=== PATIENT | female | born 1990 | race Caucasian/White ===

== ENCOUNTER 2024-05-26 15:01 | Inpatient (IN) | payer MEDICAID ==
[~2024-05-26] VITALS: Ht 165.1 cm; Wt 65.0 kg
[2024-05-26] MEDS ORDERED: DiphenhydrAMINE HCL 50 MG/ML VIAL ONE (15:25)
[2024-05-26] MEDS ORDERED: HALOPERIDOL LACTATE 5 MG/ML VIAL ONE ×2 (15:25→15:27)
[2024-05-26] MEDS ORDERED: LORazepam 2 MG/ML VIAL ONE (15:25)
[2024-05-26] MEDS: DiphenhydrAMINE HCL 50 MG/ML VIAL IM ONE (15:52)
[2024-05-26] MEDS: HALOPERIDOL LACTATE 5 MG/ML VIAL IM ONE (15:52)
[2024-05-26] MEDS: LORazepam 2 MG/ML VIAL IM ONE (15:53)
[2024-05-26] MEDS: BACITRACIN 0.9 GM PACKET OINTMENT TP ONE (16:32)
[2024-05-26] MEDS: PERTUSS(ACELL),DIPH,TET/PF 0.5 ML SYRINGE [ADULT] IM. ONE (16:34)
[2024-05-26 17:05] LABS: BASOPHILS % (AUTO) 0.4 % (0.0-2.0); EOSINOPHILS % (AUTO) 4.3 % (1.0-6.0); HEMATOCRIT 40.5 % (36-46); HEMOGLOBIN 13.2 g/dL (12.0-16.0); LYMPHOCYTES # (AUTO) 2.2 K/uL (1.0-4.8); LYMPHOCYTES % (AUTO) 34.7 % (22.0-44.0); MEAN CORPUSCULAR HEMOGLOBIN 28.4 pg (26.0-34.0); MEAN CORPUSCULAR HGB CONC 32.4 G/dL (31.0-37.0); MEAN CORPUSCULAR VOLUME 88 fL (80-100); MONOCYTES # (AUTO) 0.4 K/uL (0.1-1.0); MONOCYTES % (AUTO) 5.7 % (2.0-9.0); NEUTROPHILS # (AUTO) 3.4 K/uL (1.8-7.7); NEUTROPHILS % (AUTO) 54.9 % (40.0-70.0); PLATELET COUNT (AUTO) 124 K/uL (150-450); RED BLOOD CELL COUNT(AUTO) 4.64 MIL/uL (4.00-5.20); RED CELL DISTRIBUTION WIDTH 14.3 % (11.5-14.5); WHITE BLOOD COUNT (AUTO) 6.2 K/uL (4.5-11.0)
[2024-05-26 17:12] LABS: ANION GAP 11 mmol/L (8-16); CARBON DIOXIDE 25 mmol/L (22-29); CHLORIDE 108 mmol/L (98-107); CREATININE 0.68 mg/dL (0.60-1.30); GLOMERULAR FILTR. RATE CALC > 60 mL/min (>60); GLUCOSE,RANDOM 73 mg/dL (70-110); POTASSIUM 3.8 mmol/L (3.5-5.1); SODIUM SERUM 144 mmol/L (136-145); UREA NITROGEN, BLOOD 9 mg/dL (7-18)
[2024-05-26 17:14] LABS: ALCOHOL, BLOOD (SERUM) 151 mg/dL (0-10)
[2024-05-26 19:18] LABS: COVID AG,FIA SOURCE NASAL SWAB
[2024-05-26 19:43] LABS: SARS-COV2 (COVID) ANTIGEN,FIA Negative (Negative)
[2024-05-26] MEDS: LIDOCAINE 1% 10 ML VIAL ID ONE (19:59)
[2024-05-26] MEDS ORDERED: HALOPERIDOL 5 MG TABLET PO PRN (22:00)
[2024-05-26] MEDS ORDERED: LORazepam 2 MG TABLET PO PRN (22:00)
[2024-05-26 22:03] LABS: ALCOHOL, URINE DRUG SCREEN POSITIVE (NEGATIVE); AMPHET/METH SCREEN,URINE NEGATIVE (NEGATIVE); BARBITURATE SCREEN, URINE NEGATIVE (NEGATIVE); BENZODIAZEPINES SCREEN,URINE NEGATIVE (NEGATIVE); CANNABINOID SCREEN,URINE POSITIVE (NEGATIVE); COCAINE SCREEN,URINE NEGATIVE (NEGATIVE); METHADONE SCREEN, URINE NEGATIVE (NEGATIVE); OPIATE SCREEN,URINE NEGATIVE (NEGATIVE); PHENCYCLIDINE SCREEN,URINE NEGATIVE (NEGATIVE)
[2024-05-27 22:25] VITALS: BP 115/80; PULSE 79; RESP 15; TEMP 97.7; O2SAT 98
[2024-05-28 08:31] VITALS: BP 109/61; PULSE 94; RESP 17; TEMP 97.8; O2SAT 99
[2024-05-28] MEDS ORDERED: CloNIDine HCL 0.1 MG TABLET PO PRN (12:00)
[2024-05-28] MEDS ORDERED: ALBUTEROL SULFATE HFA 90 MCG/PUFF 8 GM INHALER IH PRN (12:00)
[2024-05-28] MEDS ORDERED: ONDANSETRON HCL 4 MG TABLET PO PRN (12:00)
[2024-05-28] MEDS ORDERED: LOPERAMIDE HCL 2 MG CAPSULE PO PRN (12:00)
[2024-05-28] MEDS ORDERED: DOCUSATE SODIUM 100 MG CAPSULE PO PRN (12:00)
[2024-05-28] MEDS ORDERED: PETROLATUM,WHITE 28 GM JELLY TP PRN (12:00)
[2024-05-28] MEDS ORDERED: BENZOCAINE/MENTHOL LOZENGE PO PRN (12:00)
[2024-05-28] MEDS ORDERED: OMEPRAZOLE 20 MG CAPSULE PO PRN (12:00)
[2024-05-28] MEDS ORDERED: MAG HYDROX/ALUMINUM HYD/SIMETH ES 30 ML SUSPENSION UDCUP PO PRN (12:00)
[2024-05-28] MEDS ORDERED: MAGNESIUM HYDROXIDE SUSPENSION 30 ML UDCUP PO PRN (12:00)
[2024-05-28] MEDS: ACETAMINOPHEN 325 MG TABLET PO PRN (18:55)
[2024-05-28] MEDS: BACITRACIN 28 GM OINTMENT TP PRN (18:55)
[2024-05-28 20:17] VITALS: BP 114/65; PULSE 73; RESP 16; TEMP 97.7; O2SAT 100
[2024-05-28] MEDS: ZOLPIDEM TARTRATE 10 MG TABLET PO PRN (20:37)
[2024-05-29 04:16] VITALS: BP 112/70; PULSE 75; RESP 16; TEMP 97.7; O2SAT 98
[2024-05-29 08:00] VITALS: RESP 16
[2024-05-29] MEDS: IBUPROFEN 600 MG TABLET PO PRN (08:00)
[2024-05-29] MEDS: BACITRACIN 28 GM OINTMENT TP SCH (08:00)
[2024-05-29 08:28] VITALS: BP 112/60; PULSE 69; RESP 16; TEMP 97.6; O2SAT 100
== END 2024-05-29 12:00 | disposition left against medical advice (07) | DRG 753 ==
LOC: EMS 15:01 → B3A 05-27 17:56
PROVIDERS: ADMIT Psychiatry & Neurology Child & Adolescent Psychiatry; ATTEND Psychiatry & Neurology Child & Adolescent Psychiatry
PROC: 0HQ1XZZ Repair Face Skin, External Approach (ICD-10-PCS; principal; 2024-05-26)
DX: F31.2 Bipolar disorder, current episode manic severe with psychotic features (principal); F10.129 Alcohol abuse with intoxication, unspecified; F41.9 Anxiety disorder, unspecified; G47.00 Insomnia, unspecified; F19.10 Other psychoactive substance abuse, uncomplicated; Z20.822 Contact with and (suspected) exposure to COVID-19; Z53.29 Procedure and treatment not carried out because of patient's decision for other reasons; K59.00 Constipation, unspecified; Y90.9 Presence of alcohol in blood, level not specified; S01.81XA Laceration without foreign body of other part of head, initial encounter; X58.XXXA Exposure to other specified factors, initial encounter; Z59.00 Homelessness unspecified; Y93.89 Activity, other specified; Y92.89 Other specified places as the place of occurrence of the external cause; Y99.8 Other external cause status; Z71.41 Alcohol abuse counseling and surveillance of alcoholic
CPT/HCPCS: 51701; 80048; 80307; 84703; 85025; 90715; 99285; G0480; J1200; J1630; J2060; J3490